=== PATIENT | female | born 1990 | race Caucasian/White ===

== ENCOUNTER 2017-07-03 04:14 | Outpatient (CLI) | payer OTHER ==
[~2017-07-03] VITALS: Ht 160 cm; Wt 113.0 kg
== END 2017-07-03 05:20 | disposition home or self-care (01) ==
LOC: M LDO 04:14
PROVIDERS: ATTEND Obstetrics & Gynecology
DX: O36.8130 Decreased fetal movements, third trimester, not applicable or unspecified (principal); Z3A.29 29 weeks gestation of pregnancy

== ENCOUNTER → 2017-10-20 | Outpatient (REF) | payer OTHER | LOC: M SFHCLERA 12:12 | DX: J02.9 Acute pharyngitis, unspecified (principal) ==

== ENCOUNTER 2017-11-29 10:11 | Outpatient (RCR) | payer OTHER | END 2017-12-18 | LOC: M OT 10:11 | DX: G56.01 Carpal tunnel syndrome, right upper limb (principal) | CPT/HCPCS: 97110 ==